=== PATIENT | male | born 1950 | race Native Hawaiian/Other Pacific Islander ===

== ENCOUNTER 2020-07-29 20:03 | Emergency (ER) | payer OTHER ==
[~2020-07-29] VITALS: Ht 157.5 cm; Wt 82.1 kg
[2020-07-29 20:03] VITALS: BP 154/80; TEMP 99.3
[~2020-07-29 20:03] MED LIST: ALUMSUS6 PO; BUSP5TAB2 PO; CETIRIZINE10 MG PO; CLON1TAB18 PO; CYAN10009 IM; DIPH50IN IM; ESCI10TA PO; HALO5INJ3 IM; HYDROXYZ HCL10 MG PO; JANUVIA100 MG PO; LEVEMIR FL100 UNIT/M SC; LEVO-T25 MCG PO; LISI5TAB10 PO; LORA2INJ21 IM; MAGNSUS68 PO; METF500T PO; MUPI2OIN2 TOP; OLAN10INJ IM; PRAVACHOL20 MG PO; SERT50TA PO; TRAM50TA PO; TRIA0.1O13 TOP; TYLENOL325 MG PO; VIMPAT100 MG PO; [UNRECOGNIZED DRUG - CODE]; [UNRECOGNIZED DRUG - OTHER] SC
[2020-07-29 21:15] LABS: PLATELET COUNT 227 K/uL (142-355)
[2020-07-29 21:22] LABS: POTASSIUM 4.3 mmol/L (3.6-5.2)
[2020-07-29] MEDS ORDERED: VITAMIN DE1000 MCG/M IM (23:16)
[2020-07-29] MEDS ORDERED: LEVEMIR FL100 UNIT/M SC (23:17)
[2020-07-29] MEDS ORDERED: EUTHYROX25 MCG PO (23:18)
[2020-07-29] MEDS ORDERED: LISI5TAB10 PO (23:19)
[2020-07-29] MEDS ORDERED: PRAVACHOL20 MG PO (23:20)
[2020-07-29] MEDS ORDERED: TRADJENTA5 M1 PO (23:20)
[2020-07-29] MEDS ORDERED: TRICOR48 MG PO (23:21)
[2020-07-29] MEDS ORDERED: ZOLOFT25 MG PO (23:22)
[2020-07-29] MEDS ORDERED: CETI10TA PO (23:22)
[2020-07-29] MEDS ORDERED: BUSPIRONE10 MG PO (23:23)
[2020-07-29] MEDS ORDERED: DICLOFENAC SODIUM1 % TD (23:25)
[2020-07-29] MEDS ORDERED: LAMICTAL25 MG PO (23:26)
[2020-07-29] MEDS ORDERED: METF100038 PO (23:28)
[2020-07-29] MEDS ORDERED: NOVOLOG FL100 UNIT/M SC (23:30)
[2020-07-29] MEDS ORDERED: VIMPAT100 MG PO (23:31)
[2020-07-29] MEDS ORDERED: TYLENOL325 MG PO (23:32)
== END 2020-07-29 21:39 | disposition still patient (30) ==
LOC: ED 20:49
PROVIDERS: Emergency Medicine Emergency Medical Services
DX: R46.89 Other symptoms and signs involving appearance and behavior (principal); F20.89 Other schizophrenia; Z11.59 Encounter for screening for other viral diseases; Z04.6 Encounter for general psychiatric examination, requested by authority
CPT/HCPCS: 36415; 80053; 81000; 85027; 87088; 87635; 93005; 99283; 99285; U0003

== ENCOUNTER 2022-02-03 15:23 | Emergency (ER) | payer OTHER ==
[~2022-02-03] VITALS: Ht 172.7 cm; Wt 85.7 kg
[2022-02-03 15:23] VITALS: BP 173/89; TEMP 97.2
[~2022-02-03 15:23] MED LIST changes: +BUSPIRONE10 MG PO; +CETI10TA PO; +CHOL100034 PO; +DICLOFENAC SODIUM1 % TD; +EUTHYROX25 MCG PO; +LAMICTAL25 MG PO; +MAGN400T4 PO; +MAPAP500 MG PO; +METF100038 PO; +NOVOLOG FL100 UNIT/M SC; +TRADJENTA5 M1 PO; +TRICOR48 MG PO; +VITAMIN DE1000 MCG/M IM; +ZOLOFT25 MG PO
[2022-02-03 15:59] LABS: PLATELET COUNT 249 K/uL (142-355)
[2022-02-03 16:11] LABS: POTASSIUM 4.2 mmol/L (3.6-5.2)
[2022-02-04] MEDS ORDERED: BUSPIRONE15 MG PO (09:02)
[2022-02-04] MEDS ORDERED: FARXIGA10 MG PO (09:31)
[2022-02-04] MEDS ORDERED: JANUVIA100 MG PO (09:32)
== END 2022-02-03 17:48 | disposition still patient (30) ==
LOC: ED 15:23
PROVIDERS: Emergency Medicine
DX: F20.89 Other schizophrenia (principal); F91.8 Other conduct disorders
CPT/HCPCS: 80053; 85027; 87635; 93005; 99283; U0003